=== PATIENT | male | born 1995 | race Caucasian/White ===

== ENCOUNTER 2017-02-20 18:04 | Emergency (ER) | payer BC, SELFPAY ==
--- NOTE | 2017-02-20 08:08 | XR_ITS ---
XR knee RT 3V HISTORY: Posttraumatic pain ITS.REASON: PAIN S/P FALL ORDERING PHYSICIAN: MAXIMUS Mcgarry PATIENT AGE: 21 years COMPARISON: None FINDINGS: No fracture or dislocation. No lytic or blastic change. Normal mineralization. No significant arthritic changes evident. No other significant findings IMPRESSION: Negative Knee
[2017-02-20 18:30] VITALS: BP 150/98; PULSE 111; RESP 14; TEMP 36.8; O2SAT 98; BMI 35.3
== END 2017-02-20 20:00 | disposition home or self-care (01) ==
PROVIDERS: Emergency Provider Physician Assistant; Family Provider Internal Medicine; PCP Internal Medicine
DX: S80.01XA Contusion of right knee, initial encounter (principal); W00.0XXA Fall on same level due to ice and snow, initial encounter
CPT/HCPCS: 73562; 99202; 99282

== ENCOUNTER 2021-02-14 11:15 | Emergency (ER) | payer BC, SELFPAY ==
[2021-02-14 12:24] VITALS: BP 124/76; PULSE 75; RESP 18; TEMP 36.9; O2SAT 96; BMI 35.3
--- NOTE | 2021-02-14 12:37 | HMH.EDUTC ---
[facility] [place] Clinical Impression: Viral syndrome Disposition: Home, Self-Care Condition on Discharge: Good Instructions: DI for Viral Syndrome, Preventing the Spread of Coronavirus Discharge Instructions, DI for COVID-19 (Suspected or Confirmed ) Additional Instructions: Drink plenty of fluids. Take tylenol or ibuprofen for pain or fever. Take the medications as directed. Follow up with your regular doctor. GO TO THE ER FOR ANY WORSENING SYMPTOMS Quarantine until you know the results of your covid-19 test. If it is positive, the health department should call you and give you further instructions about your length of Quarantine and other things. Notify your school or workplace of your results and follow their instructions regarding return to work/school. Prescriptions: Brompheniramine/Pseudoephed/Dm [Bromfed Dm Cough Syrup] 5 ml PO Q6HP PRN #240 ml PRN Reason: Cough Transmission Status: Pending to [facility] Ondansetron [Zofran 4mg ODT] 4 mg PO Q8HP PRN #20 tab PRN Reason: Nausea [id number] Referrals: Shakir Schwartz [Primary Care Provider] - Forms: Work/School Release Time of Disposition: 13:16 Medical Decision Making - Medical Records Medical records reviewed: No: I reviewed the patient's medical records. - Maxx Inquiry Pt receiving controlled substance: No Vital Signs: 02/14/21 12:24 Temperature 98.4 F Temperature Source Oral Pulse Rate [Left] 75 Respiratory Rate 18 Blood Pressure [Right Arm] 124/76 Blood Pressure Mean [Right Arm] 92 02 Sat by Pulse Oximetry 96 - Lab Data Lab Results 02/14/21 12:51: Strep Scn Rapid Clinic Negative Orders (Tests/Meds): ORDERS Category Date Time Status Full Resp Panel w/COVID ([facility]) Routine Lab 02/14/21 12:26 Received Strep Screen Confirmation Stat Micro 02/14/21 12:51 Received [facility] [place] - General Stated complaint: sore throat,cough,headache,congestion Time Seen by Provider: 02/14/21 12:37 Mode of Arrival: Ambulatory Source of Information: Patient Limitations: No Limitations Description of Symptoms (Recalled from Triage Doc. by RN): pt c/o a fever, cough, nasal drainage and body aches since last night. HEENT Symptoms (Recalled from RN notes): Yes (nasal drainage) Resp Symptoms (Recalled from RN notes): Yes (cough) Skin Symptoms (Recalled from RN notes): No MS Symptoms (Recalled from RN notes): No Functional Status (Recalled from RN notes): nl - History of Present Illness Provider Complaint: He states that for the past 2 days he has began to feel bad. Last night he started having a sore throat, body aches and nasal congestion. He has had a low grade fever also. He has not been vaccinated against covid-19 or influenza. - Related Data Previous Rx's Medication Instructions Recorded Cefdinir [Omnicef 300mg Capsule] 300 mg PO BID #20 cap 02/12/18 Brompheniramine/Pseudoephed/Dm 5 ml PO Q6HP PRN #240 syrup 12/09/18 [Bromfed Dm Cough Syrup] Cefdinir [Omnicef 300mg Capsule] 300 mg PO BID #20 cap 12/09/18 guaiFENesin [Mucinex 600mg tablet] 1 - 2 tab PO BIDP PRN #30 12/09/18 tab.er.12h predniSONE [Prednisone 20mg 20 mg PO BID 4 Days #8 tab 12/09/18 Tab] Brompheniramine/Pseudoephed/Dm 5 ml PO Q6HP PRN #240 ml 02/14/21 [Bromfed Dm Cough Syrup] Ondansetron [Zofran 4mg ODT] 4 mg PO Q8HP PRN #20 tab 02/14/21 Allergies Allergy/AdvReac Type Severity Reaction Status Date / Time Penicillins Allergy Verified 02/12/18 12:07 - Worker's Comp Is this a Worker's Comp case?: No [facility] History - Hepatitis A Screen Drug use history?: No High risk sexual behaviors?: No History of sexually transmitted infection?: No Currently employed?: No Childcare worker?: No Do you have indoor plumbing?: Yes Do you have electricity?: Yes Attestation statement:: This patient has been screened for Hepatitis A risk factors. I have reviewed the patient's
[2021-02-14 13:01] LABS: UTC Strep Screen (Rapid) Negative (Negative)
[2021-02-14 13:04] LABS: Adenovirus,PCR Not Detected (NotDetected); Bordetella Pertussis Not Detected (NotDetected); Chlamydophila Pneumoniae, PCR Not Detected (NotDetected); Coronavirus 229E Not Detected (NotDetected); Coronavirus NL63 Not Detected (NotDetected); Coronavirus OC43 Not Detected (NotDetected); Coronovirus HKU1,PCR Not Detected (NotDetected); Human Metapneumovirus Not Detected (NotDetected); Influenza A, PCR Not Detected (NotDetected); Influenza AH1, 2009 Not Detected (NotDetected); Influenza AH1, PCR Not Detected (NotDetected); Influenza AH3,PCR Not Detected (NotDetected); Influenza B, PCR Not Detected (NotDetected); Mycoplasma Pneumoniae, PCR Not Detected (NotDetected); Parainfluenza 1, PCR Not Detected (NotDetected); Parainfluenza 2, PCR Not Detected (NotDetected); Parainfluenza 3, PCR Not Detected (NotDetected); Parainfluenza 4, PCR Not Detected (NotDetected); Respiratory Syncytial Virus Not Detected (NotDetected); Rhinovirus/Enterovirus Not Detected (NotDetected)
[2021-02-14 13:19] VITALS: BP 124/76; PULSE 75; RESP 18; TEMP 36.9
[2021-02-14 14:31] LABS: Coronavirus 19, PCR Detected (NotDetected)
--- NOTE | 2021-02-15 10:09 | PC.NURSE ---
informed patient that he is positive
== END 2021-02-14 13:24 | disposition home or self-care (01) ==
PROVIDERS: Emergency Provider Nurse Practitioner Family; PCP Internal Medicine
DX: U07.1 COVID-19 (principal); J02.9 Acute pharyngitis, unspecified
CPT/HCPCS: 87581; 87632; 87798; 87880; 99203; C9803; G0463; U0003; U0005

== ENCOUNTER 2023-04-30 10:57 | Emergency (ER) | payer BC, SELFPAY ==
[2023-04-30 11:35] VITALS: BP 137/84; PULSE 87; RESP 20; TEMP 37; O2SAT 98; BMI 36.1
--- NOTE | 2023-04-30 11:51 | EXP.UTC ---
Discharge Plan Disposition Patient Disposition: Home, Self-Care Condition: Good Prescriptions Prescriptions: New cefdinir 300 mg capsule 300 mg PO BID Qty: 20 0RF sulfacetamide sodium 10 % drops 1 drp ophthalmic (eye) Q3H 7 Days Qty: 15 0RF No Action prednisone 20 mg tablet 20 mg PO BID 5 Days Qty: 10 0RF pseudoephedrine HCl 120 mg tablet extended release 120 mg PO Q12H PRN (Reason: nasal congestion) Qty: 14 0RF Referrals Follow up/Referrals: Shakir Schwartz MD [Primary Care Provider] - See instructions Activity Restrictions/Add. Instructions Additional Instructions/Restrictions: Start antibiotic as soon as possible and be sure to take as ordered for full length of time even though he should start feeling better in 24-48 hours. Tylenol or Motrin as needed for pain or fever Encourage fluids, water, Gatorade, Powerade, Pedialyte if infant/toddler/child Warm compresses often helps when placed over ear Return immediately for new or worsening symptoms no noticeable improvement in 48-72 hours and in 10-14 days to ensure the ears are return to baseline. Follow-up with primary care Clinical Impressions Clinical Impression: Bilateral otitis media, Sinusitis, Brunson eye disease of left eye Instructions Patient Instructions: DI for Sinusitis, Middle Ear Infection, DI for Conjunctivitis Discharge ED Provider: Yara ([facility] [place] General Stated complaint: congestion Mode of Arrival: Ambulatory Source of Information: Patient Limitations: No Limitations Time Seen by Provider: 04/30/23 11:52 Description of Symptoms (Recalled from Triage Doc. by RN): PATIENT C/O BILATERAL EAR PAIN AND SINUS PRESSURE SINCE TUESDAY HEENT Symptoms (Recalled from RN notes): Yes Resp Symptoms (Recalled from RN notes): No Skin Symptoms (Recalled from RN notes): No MS Symptoms (Recalled from RN notes): No Functional Status (Recalled from RN notes): WNL History of Present Illness Provider Complaint: 27 yr old male presents for katy ear pain, sinus congestion, sinus pressure and eyes matted this am Related Data Previous Rx's Medication Instructions Recorded prednisone 20 mg tablet 20 mg PO BID 5 days #10 tabs 12/02/22 pseudoephedrine HCl 120 mg 120 mg PO Q12H PRN nasal 12/02/22 tablet,extended release congestion #14 tabs cefdinir 300 mg capsule 300 mg PO BID #20 caps 04/30/23 sulfacetamide sodium 10 % eye drops 1 drp ophthalmic (eye) Q3H 7 days 04/30/23 #15 mL Allergies Allergy/AdvReac Type Severity Reaction Status Date / Time Penicillins Allergy Verified 12/02/22 08:20 Worker's Comp Is this a Worker's Comp case?: No [facility] Disclaimer: The information contained in this section may have been updated after the patient was seen, as this information can be updated by other users. 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) Smoking Status: Unknown if ever smoked second hand exposure: No alcohol intake: never current occupational status: other Travel in the last 8 weeks: None housing: house ROS Obtained: Yes All systems reviewed & no additional complaints except as documented Constitutional Constitutional: Reports system reviewed and no additional complaints, except as documented and Reports as per HPI Eyes Eyes: Reports system reviewed and no additional complaints, except as documented, Reports as per HPI and Reports eye discharge ENT Ears, Nose, Mouth, and Throat: Reports system reviewed and no additional complaints, except as documented, Reports as per HPI, Reports otalgia, Reports nasal congestion, Reports post nasal drip, Reports sinus pain and Reports sinus pressure Cardiovascular Cardiovascular: Reports system reviewed and no additional complaints, except as documented Respiratory Respiratory: Reports system reviewed and no additional complaints, except as documented Gastrointestinal Gastrointestingal: Reports system reviewed and no additional complaints, except as documented Neurologic Neurologic: Reports system reviewed and no additional complaints, except as documented Endocrine Endocrine: Reports system reviewed and no additional complaints, except as documented Hematologic/Lymphatic Henatologic/Lymphatic: Reports system reviewed and no additional complaints, except as documented Allergic/Immunologic Allergic/Immunologic: Reports system reviewed and no additional complaints, except as documented Physical Exam General General appearance: alert and in no apparent distress Head Head exam: atraumatic Eye Eye exam: Present PERRL, conjunctival redness and discharge ENT ENT exam: Present mucous membranes moist Expanded ENT Exam TM/Canal exam: Left TM: loss of landmarks and Bilateral TM: erythema and bulging Nose exam: Present sinus tenderness Respiratory Respiratory exam: Present normal lung sounds bilaterally Cardiovascular Cardiovascular exam: Present regular rate and normal rhythm Neurological Exam Neurological exam: Present alert and oriented X3 Skin Skin exam: Present warm and intact Medical Decision Making Medical Records Medical records reviewed: Yes I reviewed the patient's medical records. Maxx Inquiry Pt receiving controlled substance: No Maxx was queried for this patient: No Vital Signs: 04/30/23 11:35 Temperature 98.6 F Temperature Source Oral Pulse Rate [Left Brachial] 87 Respiratory Rate 20 Blood Pressure [Left Arm] 137/84 Blood Pressure Mean [Left Arm] 101 Blood Pressure Source [Left Arm] Automatic Cuff Blood Pressure Position [Left Arm] Sitting 02 Sat by Pulse Oximetry 98 Oxygen Delivery Method Room Air Lab Data Lab results reviewed: Yes I reviewed the patient's lab results.
[2023-04-30 12:01] VITALS: BP 137/84; PULSE 87; RESP 20; TEMP 37; O2SAT 98
== END 2023-04-30 12:04 | disposition home or self-care (01) ==
PROVIDERS: Emergency Provider Nurse Practitioner Family; PCP Internal Medicine
DX: H66.93 Otitis media, unspecified, bilateral (principal); H10.32 Unspecified acute conjunctivitis, left eye; J01.90 Acute sinusitis, unspecified
CPT/HCPCS: 99212; 99214; G0463

== ENCOUNTER 2024-03-12 15:39 | Outpatient (CLI) | payer BC, SELFPAY ==
[2024-03-12 14:40] LABS: Basophils % 0.5 % (0.1-2.0); Eosinophils # 0.1 K/mm3 (0.0-0.4); Eosinophils % 1.4 % (0.1-12.0); Hematocrit 49.1 % (42.0-52.0); Hemoglobin 16.4 g/dL (14.1-18.0); Lymphocytes # 1.8 K/mm3 (0.7-4.5); Lymphocytes % 30.2 % (10-50); Mean Corpuscular HGB Conc 33.4 g/dL (31.8-35.4); Mean Corpuscular Hemoglobin 27.9 pg (27.0-31.2); Mean Corpuscular Volume 83.5 fl (80-94); Mean Platelet Volume 10.3 fl (7.4-10.4); Monocytes # 0.4 K/mm3 (0.1-1.0); Monocytes % 6.4 % (1.7-9.3); Neutrophils # 3.6 K/mm3 (1.8-7.8); Neutrophils % 60.7 % (37.0-80.0); Platelet Count 291 K/mm3 (142-424); Red Blood Count 5.88 M/mm3 (4.60-6.20); White Blood Count 5.9 K/mm3 (4.8-10.8)
[2024-03-12 15:05] LABS: Chloride 101 mmol/L (98-107); Potassium 4.7 mmoL/L (3.5-5.1); Sodium 140 mmol/L (136-145)
[2024-03-12 15:07] LABS: Blood Urea Nitrogen 16 mg/dl (9-20); Estimated Glomerular Filt Rate 100 ml/min (>60); GFR (African American) 122 ML/MIN (>60)
[2024-03-12 15:08] LABS: Alanine Aminotransferase 108 U/L (12-78); Albumin/Globulin Ratio 2.1 (1.1-1.8); Alkaline Phosphatase 63 U/L (38-126); Anion Gap 15.7 mEq/L (5-15); Aspartate Amino Transferase 90 U/L (17-59); Bilirubin,Total 1.4 mg/dl (0.2-1.3); Calcium 9.5 mg/dl (8.4-10.2); Carbon Dioxide 28 mmol/L (22.0-30.0); Chol/HDL Ratio 6.9 (1-3.5); Cholesterol 240 mg/dl (140-200); Globulin 2.4 g/dL (1.3-3.2); Glucose 122 mg/dl (74-100); HDL Cholesterol 35 mg/dl (40-60); Total Protein,Serum 7.4 g/dl (6.3-8.2); Triglycerides 198 mg/dl (30-150); VLDL Cholesterol 40 mg/dL (0-40)
[2024-03-12 15:19] LABS: Direct LDL Cholesterol 176.59 mg/dL (100-129)
[2024-03-13 01:17] LABS: Hemoglobin A1C 7.8 % (4.0-6.0)
== END 2024-03-12 23:59 | disposition home or self-care (01) ==
LOC: LAB.DROPOF 15:39
PROVIDERS: PCP Internal Medicine; Visit Provider Internal Medicine
DX: E66.01 Morbid (severe) obesity due to excess calories (principal); R73.01 Impaired fasting glucose; G47.33 Obstructive sleep apnea (adult) (pediatric); R53.83 Other fatigue; Z68.37 Body mass index [BMI] 37.0-37.9, adult
CPT/HCPCS: 80053; 80061; 83036; 84443; 85025

== ENCOUNTER 2024-09-17 08:30 | Outpatient (CLI) | payer BC, SELFPAY ==
[2024-09-17 15:33] LABS: Hemoglobin A1C 7.7 % (4.0-6.0)
[2024-09-17 15:36] LABS: Albumin Level 4.2 g/dl (3.5-5.0); Chloride 97 mmol/L (98-107); Potassium 4.6 mmoL/L (3.5-5.1); Sodium 137 mmol/L (136-145)
[2024-09-17 15:38] LABS: Alanine Aminotransferase 110 U/L (12-78); Anion Gap 13.6 mEq/L (5-15); Aspartate Amino Transferase 71 U/L (17-59); Blood Urea Nitrogen 11 mg/dl (9-20); Carbon Dioxide 31 mmol/L (22.0-30.0); Creatinine,Serum 0.90 mg/dl (0.66-1.25); Estimated Glomerular Filt Rate 100 ml/min (>60); GFR (African American) 121 ML/MIN (>60)
[2024-09-17 15:39] LABS: Albumin/Globulin Ratio 1.4 (1.1-1.8); Alkaline Phosphatase 77 U/L (38-126); Bilirubin,Total 1.2 mg/dl (0.2-1.3); Calcium 10.0 mg/dl (8.4-10.2); Cholesterol 229 mg/dl (140-200); Globulin 3.1 g/dL (1.3-3.2); Glucose 120 mg/dl (74-100); HDL Cholesterol 35 mg/dl (40-60); Total Protein,Serum 7.3 g/dl (6.3-8.2); Triglycerides 233 mg/dl (30-150)
--- OUTSIDE RECORDS SUMMARY | 2024-09-18 12:45 | XMS_ITS | Clinical Summary ---
Author Organization [facility] Address [address] [place] [id number] Phone [email or web address] Providers Care Can Bander Operator Name Role Phone Unavailable Primary Care Provider Unavailabl e Medications No known medications Active Problems No known active problems Social History Tobacco Use Types Packs/Day Years Used Date Smoking Tobacco: Never Assessed Intimate Partner Violence Answer Date R ecorded Insults You Not on file 05/28/2020 Threatens You Not on file 05/28/2020 Screams at You Not on file 05/28/2020 Physically Hurt Not on file 05/28/2020 Intimate Partner Violence Score Not on file 05/28/2020 Stress Answer Date Recorded Stress in your Life 0 03/28/2020 Dealing with Stress Not on file 03/28/2020 Sex and Gender Information Value Date Recorded Sex Assigned at Not on file Legal Sex Male 10:02 AM CDT Gender Identity Not on file Sexual Orientation Not on file Last Filed Vital Signs Vital Sign Reading Time Taken Comments Blood Pressure 122/84 05/05/2020 8:46 AM EDT Pulse 103 05/05/2020 8:46 AM EDT Temperature 36.9 C (98.4 F) 05/05/2020 8:46 AM EDT Respiratory Rate - - Oxygen Saturation 98% 05/05/2020 8:46 AM EDT Inhaled Oxygen Concentration - - Weight 128 kg (283 lb) 05/05/2020 8:46 AM EDT Height 188 cm (6' 2 ) 05/05/2020 8:46 AM EDT Body Mass Index 36.34 05/05/2020 8:46 AM EDT Plan of Treatment Health Maintenance Due Date Last Done Comments Dental Cleaning/Exam 1995 HPV Immunization (1 - Male 3 -dose series) 06/12/2010 Hepatitis B Immunization (1 of 3 - 19+ 3-dose series) 06/12/2014 Tetanus Diphtheria and Pertu ssis Immunization (1 - Tdap) 06/12/2014 Covid-19 Immunization (1 - 2 024-25 season) 2023 Influenza Immunization (#1) 2024 HIB Immunization Aged Out No longer e ligible based on patient's age to complete this topic Hepatitis A Immunization Aged Out No longer eligible based on patient's age to complete this topic Pneumococcal: Ped (0 to 5 Yr s) and At-Risk Member (6 to 64 Yrs) Aged Out No longer e ligible based on patient's age to complete this topic Polio Immunization Aged Out No longer eligible based on patient's age to complete this topic Varicella Immunization Aged Out No lo nger eligible based on patient's age to complete this topic Insurance OPT OUT NO COPAY NB
== END 2024-09-17 23:59 | disposition home or self-care (01) ==
LOC: LAB.DROPOF 09-18 12:44
PROVIDERS: PCP Internal Medicine; Visit Provider Internal Medicine
DX: E11.9 Type 2 diabetes mellitus without complications (principal); E78.5 Hyperlipidemia, unspecified; E66.01 Morbid (severe) obesity due to excess calories
CPT/HCPCS: 80053; 80061; 82043; 82570; 83036